=== PATIENT | male | born 1980 | race Caucasian/White ===

== ENCOUNTER 2023-09-02 16:38 | Emergency (ER) | payer OTHER, SELFPAY ==
[2023-09-02 16:45] VITALS: BP 139/87; PULSE 78; RESP 16; TEMP 36.6; O2SAT 99; BMI 33.2
== END 2023-09-02 18:12 | disposition left against medical advice (07) ==
LOC: ER 16:47
PROVIDERS: Emergency Provider Emergency Medicine; PCP Physician Assistant
DX: Z53.21 Procedure and treatment not carried out due to patient leaving prior to being seen by health care provider (principal)